=== PATIENT | male | born 1985 | race Caucasian/White ===

== ENCOUNTER 2017-08-10 04:55 | Emergency (ER) | payer MEDICAID, OTHER ==
[~2017-08-10] VITALS: Ht 172.7 cm; Wt 68.0 kg
--- NOTE | 2017-08-10 05:03 | NUR ---
[facility] 881/[facility], FOR LAC TO LEFT BROW S/P RUNNING FROM P FOR ETOH. PT NOT COOPERATING. [facility] AT BEDSIDE WITH PATIENT HANDCUFFED. NO SOB. PAIN ON LEFT EYE BROW 11/25. WILL CONTINUE TO MONITOR FOR ANY CHANGES DURING THE SHIFT.
--- NOTE | 2017-08-10 05:04 | NUR ---
ER MD BRYANT AT BEDSIDE
[2017-08-10] MEDS ORDERED: TDAP [DIPH/PERTUSSIS/TET] 0.5 ML VIAL IM ONE ×2 (05:16→05:30)
[2017-08-10] MEDS ORDERED: CEPHALEXIN MONOHYDRATE 500 MG CAPSULE PO ONE ×2 (05:16→05:30)
[2017-08-10 05:25] VITALS: BP 160/100
== END 2017-08-10 05:25 ==
LOC: ER 04:57
DX: S01.112A Laceration without foreign body of left eyelid and periocular area, initial encounter (principal); S09.8XXA Other specified injuries of head, initial encounter; Z60.2 Problems related to living alone; X58.XXXA Exposure to other specified factors, initial encounter; Y93.02 Activity, running; Y92.89 Other specified places as the place of occurrence of the external cause; Y99.8 Other external cause status
CPT/HCPCS: 90715; A4606; A6403; Z7610